=== PATIENT | male | born 1980 | race American Indian/Alaskan Native ===

== ENCOUNTER 2016-11-10 18:58 | Emergency (ER) | payer OTHER ==
[2016-11-10] MEDS ORDERED: APRESOLINE IV ONE (19:27)
--- NOTE | 2016-11-10 19:27 | Emergency Department Report ---
HPI - General Chief Complaint: Chest Pain Time Seen by Provider: 11/10/16 19:18 - HPI HPI: 35-year-old -[place] male presents to the ED with chest pain chest pain , onset 1 hour prior to evaluation while at rest, Location: mid chest Radiation: none, Severity now (0-10): 2, Severity at worst (0-10): 8 Duration: 5 minutes characterized as: sharp. The pain is relieved with aspirin, Patient denies exertional pain, patient denies pleuritic pain. Patient denies associated symptoms, such as nausea/vomiting, no diaphoresis, no shortness of breath. patient also denies unilateral leg swelling, no recent prolonged travel , recent trauma, hypercoagulable state, or hormonal therapy. Patient states history of high blood pressure but has not been able to get any medication due to lack of insurance. ED Past Medical Hx - Past Medical History Previous Medical History?: Yes Hx Hypertension: Yes - Surgical History Past Surgical History?: Yes Additional Surgical History: right knee - Family History Family history: hypertension - Social History Smoking Status: Current Every Day Smoker Substance Use Type: Marijuana - Medications Home Medications: Home Medications Medication Instructions Recorded Confirmed Last Taken Type No Known Home Medications [No 11/10/16 11/10/16 Unknown History Reported Home Medications] ED Review of Systems ROS: Stated complaint: CHEST PAIN Other details as noted in HPI Comment: All other systems reviewed and negative Physical Exam - Physical Exam Vital Signs: Vital Signs 11/10/16 19:14 Temperature 98.7 F Pulse Rate 58 L Respiratory 15 Rate Blood Pressure 175/108 Blood Pressure 175/108 [Right] O2 Sat by Pulse 97 Oximetry Physical Exam: Physical Exam: - General Limitations: No Limitations General appearance: alert, in no apparent distress, obese - Head Head exam: Present: atraumatic, normocephalic - Eye Eye exam: Present: normal appearance - ENT ENT exam: Present: mucous membranes moist - Neck Neck exam: Present: normal inspection - Respiratory Respiratory exam: Present: normal lung sounds bilaterally. Absent: respiratory distress - Cardiovascular Cardiovascular Exam: Present: normal rhythm, tachycardia. Absent: systolic murmur, diastolic murmur, rubs, gallop - GI/Abdominal GI/Abdominal exam: Present: soft, normal bowel sounds - Extremities Exam Extremities exam: Present: normal inspection - Back Exam Back exam: Present: normal inspection - Neurological Exam Neurological exam: Present: alert, oriented X3 - Psychiatric Psychiatric exam: normal affect and mood - Skin Skin exam: Present: warm, dry, intact, normal color. Absent: rash ED Course Vital Signs 11/10/16 19:14 Temperature 98.7 F Pulse Rate 58 L Respiratory 15 Rate Blood Pressure 175/108 Blood Pressure 175/108 [Right] O2 Sat by Pulse 97 Oximetry - Reevaluation(s) Reevaluation #1: 11/10/16 22:20 Patient was advised about admission in the hospital to rule out acute coronary syndrome, the patient refused and signed out AMA. Patient advised of risk of signing out AMA including, disability, . ED Medical Decision Making - Lab Data Result diagrams: 11/10/16 20:16 11/10/16 20:16 Critical care attestation.: If time is entered above; I have spent that time in minutes in the direct care of this critically ill patient, excluding procedure time. ED Disposition Clinical Impression: Chest pain Qualifiers: Chest pain type: unspecified Qualified Code(s): R07.9 - Chest pain, unspecified Disposition: DC-07 LEFT AGAINST MED ADVICE Is pt being admited?: No Does the pt Need Aspirin: No Condition: Stable Instructions: Chest Pain (ED) Referrals: PRIMARY CARE, [Primary Care Provider] - 3-5 Days Forms: AMA Form
--- NOTE | 2016-11-10 19:51 | XRay Report ---
FINAL REPORT PROCEDURE: XR CHEST 1V AP TECHNIQUE: Chest radiograph anteroposterior view. CPT 87804 HISTORY: cp COMPARISON: No prior studies are available for comparison. FINDINGS: Heart: Mild cardiomegaly is noted. Mediastinum/Vessels: Normal. Lungs/Pleural space: Normal. Bony thorax: No acute osseous abnormality. Life support devices: None. IMPRESSION: Mild cardiomegaly No acute pulmonary process..
[2016-11-10 20:38] LABS: Hematocrit 43.6 % (35.5-45.6); Mean Corpuscular HGB Conc 32 % (32-34); Mean Corpuscular Hemoglobin 27 pg (28-32); Mean Corpuscular Volume 84 fl (84-94); Platelet Count 188 K/mm3 (140-440); White Blood Count 6.2 K/mm3 (4.5-11.0)
[2016-11-10 20:57] LABS: INR 0.87 (0.87-1.13)
[2016-11-10 21:01] LABS: Urine Drugs of Abuse Note Disclamer
[2016-11-10] MEDS ORDERED: CATAPRES PO ONE (21:19)
[2016-11-10 21:35] LABS: Alanine Aminotransferase 23 units/L (7-56); Albumin 4.1 g/dL (3.9-5); Albumin/Globulin Ratio 1.2 %; Alkaline Phosphatase 77 units/L (35-129); Anion Gap 16 mmol/L; Blood Urea Nitrogen 14 mg/dL (9-20); Calcium 8.9 mg/dL (8.4-10.2); Carbon Dioxide 28 mmol/L (22-30); Creatine Kinase 431 units/L (55-170); Glucose 100 mg/dL (75-100); Potassium 3.8 mmol/L (3.6-5.0); Sodium 139 mmol/L (137-145); Total Protein 7.5 g/dL (6.3-8.2)
[2016-11-10 21:44] LABS: Bilirubin,Urine NEG (Negative); Blood,Urine SM (Negative); Ketones,Urine NEG (Negative); Leukocyte Esterase,Urine NEG (Negative); Nitrite,Urine NEG (Negative); Protein,Urine <15 mg/dL mg/dL (Negative); Urobilinogen,Urine < 2.0 mg/dL (<2.0); WBC,Urine < 1.0 /HPF (0.0-6.0)
[2016-11-10 22:23] VITALS: BP 215/126
== END 2016-11-10 22:27 | disposition left against medical advice (07) ==
LOC: ED 18:58
DX: R07.9 Chest pain, unspecified (principal); I10 Essential (primary) hypertension; F17.200 Nicotine dependence, unspecified, uncomplicated
CPT/HCPCS: 36415; 71010; 80053; 80307; 81001; 82550; 83880; 84484; 85027; 85610; 85730; 93005; 93010; 96374; 99284; J0360